=== PATIENT | male | born 1950 | race Caucasian/White ===

== ENCOUNTER 2025-01-08 09:11 | Emergency (ER) | payer MEDICARE, BC, SELFPAY ==
[2025-01-08 09:12] VITALS: BMI 25.7
[2025-01-08 09:20] VITALS: BP 155/70; PULSE 64; RESP 20; TEMP 37.1; O2SAT 98; BMI 25.7
--- NOTE | 2025-01-08 09:35 | XR_ITS ---
Examination: Knee, right , 3 views Technique: Knee AP, lateral, oblique 3 views Date and time of exam: January 08, 2025 0949 hours INDICATIONS: Patient fell today with injury to the knee, knee pain. FINDINGS: Bipartite patella Prominent osteopenia No acute fracture IMPRESSION: No acute fracture
--- NOTE | 2025-01-08 09:35 | XR_ITS ---
Examination: Hand, right 3 views Technique: Hand AP, oblique, lateral 3 views Date and time of exam: January 08, 2025 0940 hours INDICATIONS: Patient fell today with injury to the right hand, right hand pain. FINDINGS: Old fracture deformity fifth metacarpal Moderate osteopenia Dislocation at the proximal interphalangeal joint fourth digit IMPRESSION: Dislocation at the proximal interphalangeal joint fourth digit
--- NOTE | 2025-01-08 09:35 | EDNOTE_ITS ---
ED Fall Injury RME/HPI General Chief Complaint: Fall Stated Complaint: FALL, HAND/KNEE PAIN Time Seen by Provider: 01/08/25 09:19 Source: patient Arrival date/time: 01/08/25 09:11 74-year-old male with no known medical history presents to the emergency room with a laceration to his right hand and knee pain. Patient had a ground-level fall this morning and fell on concrete. Patient denies any head injury or head trauma. Mode of arrival: ambulatory Limitations: no limitations Related Data Previous Rx's ?Medication ?Instructions ?Recorded esomeprazole magnesium 20 mg 20 mg PO QDAY #20 caps capsule,delayed release (Nexium) ibuprofen 600 mg tablet 600 mg PO Q8H PRN pain #20 t abs 05/13/24 cephalexin 500 mg capsule 500 mg PO BID 7 days #14 cap s 01/08/25 Allergies Allergy/AdvReac Type Severity Reaction Status Date / Time No Known Allergies Allergy Verified 01/08/25 09:13 Review of Systems Review of Systems Systems Reviewed: All systems reviewed, normal except as documented Constitutional Constitutional: Reports system reviewed and no additional complaints, except as documented, Denies fatigue, Denies fever(s), Denies headache(s) and Denies weakness Eyes Eyes: Reports system reviewed and no additional complaints, except as documented, Denies blurry vision and Denies change in vision ENT Ears, Nose, Mouth, and Throat: Reports system reviewed and no additional complaints, except as documented, Denies otalgia, Denies headache(s), Denies nasal congestion, Denies throat swelling and Denies vertigo Cardiovascular Cardiovascular: Reports system reviewed and no additional complaints, except as documented, Denies chest pain, Denies dyspnea and Denies dyspnea on exertion Respiratory Respiratory: Reports system reviewed and no additional complaints, except as documented, Denies chest congestion, Denies cough, Denies dyspnea, Denies dyspnea on exertion and Denies wheezing Gastrointestinal Gastrointestinal: Reports system reviewed and no additional complaints, except as documented, Denies abdominal pain, Denies cramping, Denies nausea and Denies vomiting Genitourinary Genitourinary: Reports system reviewed and no additional complaints, except as documented, Denies dysuria and Denies hematuria Musculoskeletal Musculoskeletal: Reports system reviewed and no additional complaints, except as documented, Reports arthralgias and Denies back pain Integumentary/Breasts Skin/Breast: Reports system reviewed and no additional complaints, except as documented and Reports wounds Neurologic Neurologic: Reports system reviewed and no additional complaints, except as documented, Denies confusion, Denies headache(s), Denies lack of coordination, Denies vertigo and Denies weakness Psychiatric Psychiatric: Reports system reviewed and no additional complaints, except as documented, Denies anxiety, Denies confusion, Denies depression, Denies paranoia, Denies suicidal ideation and Denies tactile hallucinations Endocrine Endocrine: Reports system reviewed and no additional complaints, except as documented and Denies fatigue Hematologic/Lymphatic Hematologic/Lymphatic: Reports system reviewed and no additional complaints, except as documented and Denies lymphadenopathy Allergic/Immunologic Allergic/Immunologic: Reports system reviewed and no additional complaints, except as documented, Denies throat swelling, Denies urticaria and Denies wheezing Past Medical History Past Medical History CARDIAC: Positive Cardiac Disorders and Hypercholesterolemia; Negative Congestive Heart Failure RESPIRATORY: Negative Chronic Obstructive Pulmonary Disease (COPD) GENITOURINARY: Negative Renal Disease ENDOCRINE: Negative Diabetes Mellitus Type 1 or Diabetes Mellitus Type 2 Social History SMOKING STATUS: Never smoker SUBSTANCE USE: does not use ED Exam General Limitations: Present no limitations General appearance: Present alert and in no apparent distress Head Head exam: Present atraumatic, normocephalic and normal inspection Eye Eye exam: Present normal appearance, PERRL and EOMI ENT ENT exam: Present normal exam, normal oropharynx and mucous membranes moist Neck Neck exam: Present normal inspection, full ROM and trachea midline Chest Chest inspection: Present normal inspection and symmetric chest wall rise Respiratory Respiratory exam: Present normal lung sounds bilaterally Cardiovascular Cardiovascular exam: Present regular rate, normal rhythm and normal heart sounds Abdominal Exam Abdominal exam: Present soft and normal bowel sounds Extremities Exam Extremities exam: Present normal inspection and full ROM Back Exam Back exam: Present normal inspection and full ROM Neurological Exam Neurological exam: Present alert, oriented X3 and CN II-XII intact Psychiatric Psychiatric exam: Present normal affect and normal mood Skin Skin exam: Present warm, dry, intact and normal color Course Quality Measures none Orders Category Date Time Status Set Up Suture Tray STAT Care 01/08/25 09:35 Active Wound Care NOW Care 01/08/25 09:35 Active XR hand comp RT min 3V Stat Exams 01/08/25 09:35 Completed XR hand comp RT min 3V Stat Exams 01/08/25 11:19 Completed XR knee RT 3V Stat Exams 01/08/25 09:35 Completed Lidocaine 1% 20 ml [Xylocaine 1% 20 ML] Med 01/08/25 09:35 Discontinued 20 ml INFL X1 ONE TET,DIP/PERT AC (Adult)-Tdap [Boostrix Adult (Tdap) Med 01/08/25 09:35 Discontinued Vacc] 0.5 ml IMI .ONCE ONE Vital Signs Vital signs: Vital Signs Temperature 98.8 F 01/08/25 09:20 Pulse Rate 64 01/08/25 09:20 Respiratory Rate 20 01/08/25 09:20 Blood Pressure 155/70 H 01/08/25 09:20 Pulse Oximetry (%) 98 01/08/25 09:20 Oxygen Delivery Method Room Air 01/08/25 09:20 O2 saturation 98% within normal limits Procedures -ED Laceration Laceration 1: Site: hand Side (If applicable): right Size (cm): 1 Description: flap and irregular Depth: simple, single layer Local Anesthetic: lidocaine 1% Amount of anesthesia used (mL): 4 Pre-repair: irrigated extensively Skin layer closed with: nylon Size (cm): 4-0 Number of sutures: 5 Technique: simple, interrupted Fall MDM Narrative MDM Narrative:: 74-year-old male with no known medical history presents to the emergency room with a laceration to his right hand and knee pain. Patient had a ground-level fall this morning and fell on concrete. Patient denies any head injury or head trauma. Patient is hemodynamically stable and in no apparent distress Physical examination shows a 1 cm laceration to his right hand fourth digit. There is also dislocation to the area. A digital block was placed and the finger was popped back into place. The laceration occured this morning after a ground-level fall in injuring his hand on concrete. The mechanism of injury was ground-level fall and injuring it on concrete Sensation is intact. There is full ROM. There is no exposed tendons. No foreign bodies. Lidocaine 1% was used for anesthesia. The wound was irrigated extensively with normal saline. 5 sutures were placed. A dressing was placed. There were no complications. Patient was educated to keep the area clean and dry for 24 hours, then clean daily with soap and water. Patient was educated to return for any signs of infection including swelling pain redness pus or fever and to make an appointment with primary care provider in 48 hours. Patient was educated to follow up with primary or return to emergency room for suture removal in the next 7-10 days. Patient data External records reviewed:: [facility] previous records Clinical information provided by:: patient Social determinants that could affect healthcare access:: none Patient has the following chronic illnesses:: No chronic illness How is presenting disease/condition affected by chronic disease/condition?: no chronic disease Evaluation data The following diagnostics were reviewed and interpreted by me:: lab results and radiology exam(s) Lab and/or radiology exams considered but not ordered:: Labs and radiology exams considered and ordered Interpretation Summary: X-ray right knee-no acute fracture or dislocation X-ray right hand-FINDINGS: There remains dislocation at the proximal interphalangeal joint fourth digit, dorsal displacement of the middle phalanx No fracture is depicted although post reduction films will be helpful in excluding this possibility IMPRESSION: Dislocation at the proximal interphalangeal joint fourth digit Medications / Prescriptions Medications or Prescriptions considered but not ordered:: Medication given Medication administrations:: Medication Administration History Discontinued Medications Diphtheria/Tetanus/Acell Pertussis (Diphth,Pertuss(Acell),Tet Vac 0.5 Ml Syr- Adult) 0.5 ml IMi .ONCE ONE Stop: 01/08/25 09:36 Last Admin: 01/08/25 10:30 Dose: 0.5 ml Documented By: OA Lidocaine HCl (Lidocaine Hcl 1% 20 Ml Vial) 20 ml INFL X1 ONE Stop: 01/08/25 09:36 Last Admin: 01/08/25 10:31 Dose: 20 ml Documented By: OA Medication given Consultations Consultation(s) initiated? (list below): No Diagnosis Fall Differential Diagnosis: other (Laceration/hand fracture/knee fracture/knee sprain) Most likely diagnosis given after review of the tests above:: Laceration Admission Indicated Admission indicated?: not indicated Admission Request Was there a request for admission?: No Disposition Plan Disposition Plan: Discharge Discharge Attestation Discharge Attestation: The patient and all family members were given an opportunity to ask questions and understood the discharge instructions. Discharge instructions specifically effects, indications for sooner follow up or return to the emergency department, and the expected course of current diagnosis. Patient condition: Stable Discharge Plan Plan Patient Disposition: HOME (Self Care) Discharge Disposition comment: Stable Prescriptions/Referrals Prescriptions/Med Rec: New cephalexin 500 mg capsule 500 mg PO BID 7 Days Qty: 14 0RF No Action esomeprazole magnesium [Nexium] 20 mg capsule,delayed release(DR/EC) 20 mg PO QDAY Qty: 20 0RF ibuprofen 600 mg tablet 600 mg PO Q8H PRN (Reason: pain) Qty: 20 0RF Referrals: No Primary/Family,Physician [Primary Care Provider] - In 1 week Problem List Clinical Impression: Laceration, Dislocated finger Patient/Caregiver Discharge Instructions Education Materials: ED Finger Dislocation Additional Instructions: Please follow-up with your primary care provider in the next 24 to 48 hours Your wound was closed and sutured. Your finger was popped back into place For any evidence of worsening signs or symptoms return the emergency room immediately Print Language: Greek Stand Alone Forms: Gilma Award Info., Patient Portal Info Letter PA/GUILLOTINE OPERATOR Supervising Physician PA/GUILLOTINE OPERATOR Supervising Physician: Dr. Magdaleno
[2025-01-08] MEDS: DIPHTH,PERTUSS(ACELL),TET VAC 0.5 ML SYR- ADULT IMi (10:30)
[2025-01-08] MEDS: LIDOCAINE HCL 1% 20 ML VIAL INFL (10:31)
--- NOTE | 2025-01-08 11:19 | XR_ITS ---
Examination: Hand, right 3 views Technique: Hand AP, oblique, lateral 3 views Date and time of exam: January 08, 2025 1125 hours Comparison January 08, 2025 INDICATIONS: Patient fell today with injury to the hand, dislocation of the proximal interphalangeal joint fourth digit FINDINGS: There remains dislocation at the proximal interphalangeal joint fourth digit, dorsal displacement of the middle phalanx No fracture is depicted although post reduction films will be helpful in excluding this possibility IMPRESSION: Dislocation at the proximal interphalangeal joint fourth digit
== END 2025-01-08 12:16 | disposition home or self-care (01) ==
PROVIDERS: Emergency Provider Family Medicine
DX: S61.411A Laceration without foreign body of right hand, initial encounter (principal); S63.284A Dislocation of proximal interphalangeal joint of right ring finger, initial encounter; S89.91XA Unspecified injury of right lower leg, initial encounter; W18.30XA Fall on same level, unspecified, initial encounter; Z23 Encounter for immunization
CPT/HCPCS: 12002; 73130; 73562; 90471; 90715; 99283; J3490

== ENCOUNTER 2025-01-18 10:43 | Emergency (ER) | payer MEDICARE, BC, SELFPAY ==
[2025-01-18 10:47] VITALS: BP 144/82; PULSE 62; RESP 18; TEMP 36.2; O2SAT 97; BMI 24.4
[2025-01-18] MEDS: LIDOCAINE HCL 1% 20 ML VIAL 2.1 ML INFL (11:10)
[2025-01-18] MEDS: cefTRIAXone SOD INJ 1,000 MG VIAL 1000 MG IM (11:10)
--- NOTE | 2025-01-18 11:15 | EDNOTE_ITS ---
ED Wound/Laceration-RME/HPI General Chief Complaint: Wound Recheck / Suture Removal Stated Complaint: RIGHT RING FINGER SUTURE REMOVAL Time Seen by Provider: 01/18/25 10:48 Arrival date/time: 01/18/25 10:43 74-year-old male presents to the emergency department today requesting suture removal patient had sutures placed on last visit here in the emergency department Limitations: no limitations Related Data Previous Rx's ?Medication ?Instructions ?Recorded esomeprazole magnesium 20 mg 20 mg PO QDAY #20 caps capsule,delayed release (Nexium) ibuprofen 600 mg tablet 600 mg PO Q8H PRN pain #20 t abs 05/13/24 hydrocodone 5 mg-acetaminophen 325 1 tab PO BID PRN pa in #10 tabs 01/08/25 mg tablet cephalexin 500 mg tablet 500 mg PO QID 7 days #28 tab s 01/18/25 Allergies Allergy/AdvReac Type Severity Reaction Status Date / Time No Known Allergies Allergy Verified 01/18/25 10:46 Review of Systems Review of Systems Systems Reviewed: All systems reviewed, normal except as documented Constitutional Constitutional: Reports system reviewed and no additional complaints, except as documented, Denies fever(s) and Denies headache(s) Eyes Eyes: Reports system reviewed and no additional complaints, except as documented and Denies blurry vision ENT Ears, Nose, Mouth, and Throat: Reports system reviewed and no additional complaints, except as documented, Denies headache(s), Denies nasal congestion and Denies nasal discharge Cardiovascular Cardiovascular: Reports system reviewed and no additional complaints, except as documented, Denies chest pain and Denies dyspnea Respiratory Respiratory: Reports system reviewed and no additional complaints, except as documented, Denies chest congestion, Denies cough and Denies dyspnea Gastrointestinal Gastrointestinal: Reports system reviewed and no additional complaints, except as documented and Denies abdominal pain Integumentary/Breasts Skin/Breast: Reports system reviewed and no additional complaints, except as documented, Denies rash and Reports wounds (Sutures in place mild erythema palmar aspect right hand fourth digit) Neurologic Neurologic: Reports system reviewed and no additional complaints, except as documented, Reports as per HPI and Denies headache(s) Past Medical History Past Medical History CARDIAC: Positive Cardiac Disorders and Hypercholesterolemia; Negative Congestive Heart Failure RESPIRATORY: Negative Chronic Obstructive Pulmonary Disease (COPD) GENITOURINARY: Negative Renal Disease ENDOCRINE: Negative Diabetes Mellitus Type 1 or Diabetes Mellitus Type 2 Social History SMOKING STATUS: Never smoker SUBSTANCE USE: does not use ED Exam General Limitations: Present no limitations General appearance: Present alert and in no apparent distress Head Head exam: Present atraumatic Eye Eye exam: Present normal appearance, PERRL and EOMI ENT ENT exam: Present normal exam, normal oropharynx and mucous membranes moist Neck Neck exam: Present normal inspection, full ROM and trachea midline Chest Chest inspection: Present normal inspection and symmetric chest wall rise Respiratory Respiratory exam: Present normal lung sounds bilaterally Cardiovascular Cardiovascular exam: Present regular rate, normal rhythm and normal heart sounds Abdominal Exam Abdominal exam: Present soft and normal bowel sounds Extremities Exam Extremities exam: Present normal inspection and full ROM Back Exam Back exam: Present normal inspection and full ROM Neurological Exam Neurological exam: Present alert, oriented X3, CN II-XII intact, normal gait and reflexes normal; Absent motor sensory deficit Psychiatric Psychiatric exam: Present normal affect and normal mood Skin Skin exam: Present warm, dry and other (Sutures in place mild erythema palmar aspect right hand fourth digit) Course Quality Measures none Orders Category Date Time Status Lidocaine 1% 20 ml [Xylocaine 1% 20 ML] Med 01/18/25 11:00 Discontinued 2.1 ml INFL X1 ONE cefTRIAXone [Rocephin] Med 01/18/25 11:00 Discontinued 1,000 mg IM X1 ONE Vital Signs Vital signs: Vital Signs Temperature 97.2 F 01/18/25 10:47 Pulse Rate 62 01/18/25 10:47 Respiratory Rate 18 01/18/25 10:47 Blood Pressure 144/82 H 01/18/25 10:47 Pulse Oximetry (%) 97 01/18/25 10:47 Oxygen Delivery Method Room Air 01/18/25 10:47 O2 saturation 97% room air with normal limits Wound / Laceration MDM Narrative MDM Narrative:: 74-year-old male presents to the emergency department today requesting suture removal patient had sutures placed on last visit here in the emergency department On exam at the suture site patient appears to have a localized area of erythema I suspect patient may have slight infection Patient was given injection of Rocephin here discharged with antibiotics Patient [facility] told [facility] to [facility] and asked them to refer him to hand surgeon For emergent concerns patient is instructed return immediately for further evalu ation. Patient data External records reviewed:: [facility] previous records Clinical information provided by:: patient Social determinants that could affect healthcare access:: none Patient has the following chronic illnesses:: None How is presenting disease/condition affected by chronic disease/condition?: no chronic disease Evaluation data The following diagnostics were reviewed and interpreted by me:: other (specify) (Cellulitis, abscess) Lab and/or radiology exams considered but not ordered:: Cellulitis Interpretation Summary: cellulitis Medications / Prescriptions Medications or Prescriptions considered but not ordered:: Given Medication administrations:: Medication Administration History Discontinued Medications Ceftriaxone Sodium (Ceftriaxone Sod Inj 1,000 Mg Vial) 1,000 mg IM X1 ONE Stop: 01/18/25 11:01 Last Admin: 01/18/25 11:10 Dose: 1,000 mg Documented By: RAJ Lidocaine HCl (Lidocaine Hcl 1% 20 Ml Vial) 2.1 ml INFL X1 ONE Stop: 01/18/25 11:01 Last Admin: 01/18/25 11:10 Dose: 2.1 ml Documented By: OA Given Consultations Consultation(s) initiated? (list below): No Diagnosis Wound Differential Diagnosis: laceration, abscess and avulsion of skin Most likely diagnosis given after review of the tests above:: Cellulitis suture removal Admission Indicated Admission indicated?: not indicated Admission Request Was there a request for admission?: No Disposition Plan Disposition Plan: Discharge Discharge Attestation Discharge Attestation: The patient and all family members were given an opportunity to ask questions and understood the discharge instructions. Discharge instructions specifically effects, indications for sooner follow up or return to the emergency department, and the expected course of current diagnosis. Patient condition: Stable Discharge Plan Plan Patient Disposition: HOME (Self Care) Discharge Disposition comment: Stable Prescriptions/Referrals Prescriptions/Med Rec: New cephalexin 500 mg tablet 500 mg PO QID 7 Days Qty: 28 0RF No Action esomeprazole magnesium [Nexium] 20 mg capsule,delayed release(DR/EC) 20 mg PO QDAY Qty: 20 0RF ibuprofen 600 mg tablet 600 mg PO Q8H PRN (Reason: pain) Qty: 20 0RF hydrocodone-acetaminophen 5-325 mg tablet 1 tab PO BID MDD 10mg PRN (Reason: pain) Qty: 10 0RF Problem List Clinical Impression: Encounter for removal of sutures Patient/Caregiver Discharge Instructions Education Materials: ED Suture Removal, Infected Wound Additional Instructions: Please keep your appointment tomorrow with your PCP request referral to specialist for worsening symptoms return immediately Print Language: Setswana Stand Alone Forms: Gilma Award Info., Patient Portal Info Letter PA/DIRECTOR OF COMPENSATION Supervising Physician PA/DIRECTOR OF COMPENSATION Supervising Physician: Dr. vora
== END 2025-01-18 13:05 | disposition home or self-care (01) ==
PROVIDERS: Emergency Provider Emergency Medicine; PCP Nurse Practitioner Family
DX: Z48.02 Encounter for removal of sutures (principal)
CPT/HCPCS: 96372; 99283; J0696; J3490